=== PATIENT | female | born 1975 | race Caucasian/White ===

== ENCOUNTER → 2020-12-18 12:40 | Outpatient (CLI) | payer BC, SELFPAY ==
--- NOTE | ~2020-12-18 | MM_ITS ---
EXAMINATION: MM screening hoa BI w vishnu HISTORY: Screening mammogram TECHNIQUE: Craniocaudal and mediolateral oblique 3-D tomosynthesis images were obtained and synthetic 2-D images were generated. CAD analysis was submitted and interpreted. COMPARISON: No prior mammogram is available for comparison at this institution. BREAST PARENCHYMAL COMPOSITION: The breasts are heterogeneously dense, which may obscure small masses . FINDINGS: There is no evidence of suspicious mass, calcification, or architectural distortion to sugg est malignancy in either breast. There has been no suspicious interval change. IMPRESSION: 1. No mammographic evidence of malignancy. 2. Recommend routine screening mammography in one year. BI-RADS Category 1: Negative Reviewed, dictated and finalized at location A. D MEMBER
== END ==
PROVIDERS: Visit Provider Advanced Practice Midwife
DX: Z12.31 Encounter for screening mammogram for malignant neoplasm of breast (principal)
CPT/HCPCS: 77063; 77067

== ENCOUNTER 2021-11-04 08:16 | Outpatient (CLI) | payer BC, SELFPAY ==
--- NOTE | ~2021-11-04 | CT_ITS ---
EXAMINATION: CT abdomen pelvis w con DATE: 11/04/2021 08:56 INDICATION: Ventral hernia without obstruction or gangrene TECHNIQUE: Computed tomography (CT) of the abdomen and pelvis was performed with 100 mL Omnipaque-350 intravenous contrast. Automated exposure control and iterative reconstruction technique were employe d. The dose-length product was 526.81 mGy-cm. COMPARISON: None FINDINGS: Lung bases are clear. Heart size is normal. No pericardial or pleural effusion. There are 3 low-atten uation hepatic lesions the largest measuring 1.5 cm in the right hepatic lobe. Gallbladder, pancreas, spleen, bilateral adrenal glands and kidneys are normal. Very small fat-containing umbilical hernia. No other ventral hernias. Normal appendix and small bowel. Mild to moderate scattered diverticulosis . There is wall thickening with surrounding inflammatory stranding at the mid sigmoid colon which cou ld be due to diverticulitis or less likely focal colitis. There is nonenhancing tract suspicious for a colovaginal fistula extending between the region of the deepest portion of the vaginal vault and 2 separate locations along the mid sigmoid colon. Anteverted uterus and bladder are normal. Trace amoun t of free fluid in the cul-de-sac. No abscess or free intraperitoneal gas. Approximately 1 cm right o varian likely corpus luteum cyst with crenelated enhancing peripheral margin. Severe bilateral facet osteoarthritis at L4-L5 and L5-S1. IMPRESSION: 1. Wall thickening and inflammatory stranding at the mid sigmoid colon most likely related to diverti culitis with differential including focal colitis which could be inflammatory, infectious or less lik ashley ischemic in etiology. 2. Suggestion of possible secondary colovaginal fistula. 3. Very small fat-containing umbilical hernia. 4. 3 hypoenhancing hepatic lesions, the largest measuring 1.5 cm. In the absence of known malignancy or liver disease or most likely benign would recommend further evaluation with pre and postcontrast M RI. Reviewed, dictated and finalized at location A. TOR CRANE OPERATOR IMPRESSION: 1. Wall thickening and inflammatory stranding at the mid sigmoid colon most lik ashley related to diverticulitis with differential including focal colitis which c ould be inflammatory, infectious or less likely ischemic in etiology. 2. Suggestion of possible secondary colovaginal fistula. 3. Very small fat-containing umbilical hernia. 4. 3 hypoenhancing hepatic lesions, the largest measuring 1.5 cm. In the absenc e of known malignancy or liver disease or most likely benign would recommend fu rther evaluation with pre and postcontrast MRI.
[2021-11-04 08:35] LABS: Estimated Glomerular Filt Rate > 60
== END 2021-11-04 08:17 ==
LOC: MICIMG 08:17
PROVIDERS: PCP Family Medicine; Visit Provider Nurse Practitioner Gerontology
DX: K43.9 Ventral hernia without obstruction or gangrene (principal); R10.9 Unspecified abdominal pain; R93.3 Abnormal findings on diagnostic imaging of other parts of digestive tract; K42.9 Umbilical hernia without obstruction or gangrene; K76.9 Liver disease, unspecified
CPT/HCPCS: 74177; Q9967

== ENCOUNTER 2021-11-15 10:33 | Outpatient (CLI) | payer BC, SELFPAY ==
--- NOTE | ~2021-11-15 | MR_ITS ---
EXAMINATION: MR abdomen wo/w con DATE: 11/15/2021 11:26 INDICATION: Hepatomegaly, not elsewhere classified. Liver mass. TECHNIQUE: Magnetic resonance imaging (MRI) of the abdomen was performed without and with 14 mL Multi Adilson intravenous contrast. Sequences included coronal T2-weighted FS FSE, coronal and axial FS FIEST A, axial T2-weighted FSE, coronal LAVA-flex, axial STIR FSE, axial DWI, axial dual-echo T1-weighted F SPGR, and axial LAVA. Postcontrast sequences included coronal LAVA-flex and a time course of axial LA VA. COMPARISON: CT abdomen and pelvis 11/04/2021 FINDINGS: There are 3 cysts in the liver measuring up to 1.5 cm in right hepatic lobe correlating with the CT a bnormalities. There is a 7 mm hyperenhancing mass in segment IVb of the liver. The gallbladder, splee n, pancreas, adrenal glands, and kidneys are normal. There are no dilated loops of bowel. There are n o pathologically enlarged lymph nodes. There is no free intraperitoneal fluid. IMPRESSION: 1. Benign cysts in the liver correlating with the CT abnormalities. 2. 7 mm hyperenhancing mass in the liver. In the absence of known malignancy or chronic liver disease , this finding is likely a hemangioma or focal nodular hyperplasia. Reviewed, dictated and finalized at location A. ING MIXER TENDER IMPRESSION: 1. Benign cysts in the liver correlating with the CT abnormalities. 2. 7 mm hyperenhancing mass in the liver. In the absence of known malignancy or chronic liver disease, this finding is likely a hemangioma or focal nodular hy perplasia.
== END 2021-11-15 10:34 ==
PROVIDERS: Visit Provider Nurse Practitioner Gerontology
DX: R10.9 Unspecified abdominal pain (principal); R16.0 Hepatomegaly, not elsewhere classified; K76.89 Other specified diseases of liver
CPT/HCPCS: 74183; A9577

== ENCOUNTER → 2021-12-23 12:33 | Outpatient (CLI) | payer BC, SELFPAY ==
--- NOTE | ~2021-12-23 | MM_ITS ---
EXAMINATION: MM screening hoa BI w vishnu HISTORY: Screening mammogram TECHNIQUE: Craniocaudal and mediolateral oblique 3-D tomosynthesis images were obtained and synthetic 2-D images were generated. CAD analysis was submitted and interpreted. COMPARISON: 12/18/2020 BREAST PARENCHYMAL COMPOSITION: The breasts are heterogeneously dense, which may obscure small masses . FINDINGS: There is no evidence of suspicious mass, calcification, or architectural distortion to sugg est malignancy in either breast. There has been no suspicious interval change. IMPRESSION: 1. No mammographic evidence of malignancy. 2. Recommend routine screening mammography in one year. BI-RADS Category 1: Negative Reviewed, dictated and finalized at location A. ICAL PREPARER
== END ==
PROVIDERS: Visit Provider Advanced Practice Midwife
DX: Z12.31 Encounter for screening mammogram for malignant neoplasm of breast (principal)
CPT/HCPCS: 77063; 77067

== ENCOUNTER 2022-05-31 10:12 | Outpatient (CLI) | payer BC, SELFPAY ==
[2022-05-31 11:19] LABS: Hematocrit 39.9 % (37.0-47.0); Hemoglobin 13.2 g/dL (12.0-15.0)
== END 2022-05-31 10:13 | disposition home or self-care (01) ==
LOC: ANHLAB 10:14
PROVIDERS: PCP Family Medicine; Visit Provider Anesthesiology
DX: D64.9 Anemia, unspecified (principal)
CPT/HCPCS: 36415; 85014; 85018

== ENCOUNTER 2022-06-02 01:34 | Day surgery (SDC) | payer BC, SELFPAY ==
[2022-03-28 14:20] VITALS: BMI 28.3
--- NOTE | 2022-03-28 14:28 | PC.NURSE ---
Report to the Outpatient Waiting Room, entrance under the green pavilion located off [facility], at time 1130 on date 04/01/22. OR Time: 1330. - You and your visitor will be asked a series of questions to screen for COVID 19 for your protection. - Only one visitor is allowed at this time. - The patient visitor is requested to leave or wait in car when not with patient. - A mask is required within the hospital. Patients may have clear liquids (water, carbonated beverages, clear teas, apple juice) until 3 hours prior to surgery with a maximum of 20 ounces. - No food from midnight until time of surgery Take the following medications with a SIP of water the morning of surgery: METOPROLOL Medications to discontinue per physician: VITAMINS/SUPPLEMENTS Date to take last dose: 03/28/22 Please no make-up, nail slovak, hairspray, perfume, deodorant, or body powder the day of surgery. No jewelry (including any body piercings) or valuables the day of surgery, leave them at home. Please take a shower or bath the night before, or the morning of, surgery with an antibacterial soap. Wear comfortable, loose fitting clothing. - Jewelry must be removed prior to entering the operating room. Rings and piercings that are not removed may be cut off. - The hospital will not accept responsibility for valuables. - Please leave all valuables, including medications, at home the day of surgery. If you are going home after surgery, a licensed nascar driver must drive you home. - NO public transportation without another adult. - We recommend that an adult stay with you for 24 hours following discharge. - We also recommend that you do not drive, make important decision, drink alcoholic beverages, or take any drugs that were not prescribed by your health care provider for at least 24 hours after your discharge time. Follow any additional instructions given to you from your surgeon. If you or anyone in your household have experienced Covid symptoms in the past week, please notify your surgeon or the nurse liaison at the phone number below for possible testing. Telephone instructions given to PT - HAYDE PALOMINO and asked if any additional questions and then verbalized understanding. Patient advised to call surgeon office or pre surgery nurse liaison [phone] if any additional questions.
--- NOTE | 2022-05-30 17:55 | PC.NURSE ---
Report to the Outpatient Waiting Room, entrance under the green pavilion located off [facility], at time 0600 on date _06/02/22. OR Time: 0730__. - You and your visitor will be asked a series of questions to screen for COVID 19 for your protection. - Only one visitor is allowed at this time. - The patient visitor is requested to leave or wait in car when not with patient. - A mask is required within the hospital. Patients may have clear liquids (water, carbonated beverages, clear teas, apple juice) until 3 hours prior to surgery with a maximum of 20 ounces. - No food from midnight until time of surgery - Infants may have breast milk until 4 hours before surgery, formula 6 hours prior to surgery. - Children will be allowed to drink immediately following surgery. If applicable, please bring a bottle or sippy cup to assist with drinking. Juice, water, soda, and popsicles are readily available. For infants on formula, please bring formula the day of surgery. Pacifiers are allowed. Take the following medications with a SIP of water the morning of surgery: metoprolol Medications to discontinue per physician _vitamins__ Date to take last dose_05/30/22 Please no make-up, nail citizen of [place], hairspray, perfume, deodorant, or body powder the day of surgery. No jewelry (including any body piercings) or valuables the day of surgery, leave them at home. Please take a shower or bath the night before, or the morning of, surgery with an antibacterial soap. Wear comfortable, loose fitting clothing. Children are encouraged to wear pajamas. - Jewelry must be removed prior to entering the operating room. Rings and piercings that are not removed may be cut off. - The hospital will not accept responsibility for valuables. - Please leave all valuables, including medications, at home the day of surgery. If you are going home after surgery, a licensed crude oil driver must drive you home. - NO public transportation without another adult. - We recommend that an adult stay with you for 24 hours following discharge. - We also recommend that you do not drive, make important decision, drink alcoholic beverages, or take any drugs that were not prescribed by your health care provider for at least 24 hours after your discharge time. For Pediatric surgeries, we recommend two adults accompany the child home (only one inside the building at this time). Follow any additional instructions given to you from your surgeon. If you or anyone in your household have experienced Covid symptoms in the past week, please notify your surgeon or the nurse liaison at the phone number below for possible testing. Telephone instructions given to Viviane Leonaand asked if any additional questions and then verbalized understanding. Patient advised to call surgeon office or pre surgery nurse liaison [phone] if any additional questions.
--- NOTE | 2022-06-01 08:35 | PM.IMHP ---
H&P: HPI History of Present Illness Date/Time: 06/01/22 08:35 46-year-old female 3 para 3003 presents for treatment of heavy irregular vaginal bleeding. States cycles last 5-7 days with 2-3 days heavy clotting cramping to the point where she is of alarmed relieving house thinking she will be bleeding. Has significantly impacted her social and work life. Denies any significant pain other than with the heavy cramping with her cycle. Ultrasound and other imaging has been performed with no significant abnormalities. Other options have been discussed and declined. Also has had a tubal ligation in the past. Chief Complaint: Menometrorrhagia Review of Systems Review of Systems: All systems reviewed & are unremarkable except as noted in HPI and below PMFSH Past Medical History Medical History GERD (gastroesophageal reflux disease) History of hypertension Surgical History Surgical History Tubal ligation status Family History Family History Father Hypertension Mother Hypertension Thyroid disorder Social History Social History Social History: Smoking status: Never smoker Second hand tobacco smoke exposure: No Alcohol intake: current Alcohol use details: COUPLE TIMES/MONTH Substance use: never Substance use type: does not use Additional living arrangements comments: Pt and her boyfriend live together. Additional occupation/education comments: RN Gender identity (if verbalized by the patient): Female Sexual Orientation (if Verbalized by the Patient): Straight or Heterosexual Spiritual care concerns: No Meds Home Medications and Allergies Home Medications Medication Instructions Recorded Confirmed Type cholecalciferol (vitamin D3) 25 25 mcg PO DAILY 08/27/21 03/28/22 History mcg (1,000 unit) capsule ferrous fumarate-ascorbic 1 tablet PO DAILY 08/27/21 03/28/22 History acid-ascorbate sod 65 mg iron-125 mg tablet vitamin B12 500 mcg-folic acid 400 1 tablet PO DAILY 08/27/21 03/28/22 History mcg tablet metoprolol tartrate 25 mg tablet See Rx Instructions .Route 11/30/21 03/28/22 Rx .COMPLEX #60 tabs Allergies Allergy/AdvReac Type Severity Reaction Status Date / Time Iodinated Contrast Media Allergy Intermediate hives Verified 03/28/22 14:18 Sulfa (Sulfonamide Allergy Mild Hives / Verified 03/28/22 14:18 Antibiotics) Red Face Exam Const: General: cooperative, healthy appearing and comfortable Resp: Effort & Inspection: normal respiratory effort Auscultation: clear to auscultation bilaterally Cardio: Rate: regular rate Rhythm: regular rhythm GI: Inspection: normal to inspection Auscultation: normal bowel sounds : External Female Exam: normal external appearance Speculum Exam - Vagina: normal appearance of the vagina Speculum Exam - Cervix: normal appearance of the cervix Bimanual exam- vagina & uterus: enlarged ( 12- 14 week size and globular) Bimanual Exam- Adnexa, other: normal adnexae Assessment and Plan Assessment and plan (1) Menometrorrhagia: Code(s): N92.1 - Excessive and frequent menstruation with irregular cycle Status: Acute Assessment and Plan: proceed with hysteroscopy uterine curettings and endometrial ablation.
--- NOTE | 2022-06-01 13:39 | P.PNAN_ITS ---
Anes - Initial Pre Proc Eval Procedure: Operation Date: 06/02/22 07:30 Proposed Procedures p Hysteroscopy Dilation and Curettage with Mary Endometrial Ablation - Jeremy Tilley MD Date/Time: 06/01/22 13:39 Surgeon: Jeremy Tilley MD Pre Op Diagnosis: menometrorrhagia Patient Data Age: 46 Gender: F Height: 1.6 m Weight: 72.57 kg Allergies Allergy/AdvReac Type Severity Reaction Status Date / Time Iodinated Contrast Media Allergy Intermediate hives Verified 06/02/22 06:10 Sulfa (Sulfonamide Allergy Mild Hives / Verified 06/02/22 06:10 Antibiotics) Red Face Home Medications Medication Instructions Recorded Confirmed Type cholecalciferol (vitamin D3) 25 25 mcg PO DAILY 08/27/21 06/02/22 History mcg (1,000 unit) capsule ferrous fumarate-ascorbic 1 tablet PO DAILY 08/27/21 06/02/22 History acid-ascorbate sod 65 mg iron-125 mg tablet vitamin B12 500 mcg-folic acid 400 1 tablet PO DAILY 08/27/21 06/02/22 History mcg tablet metoprolol tartrate 25 mg tablet See Rx Instructions .Route 11/30/21 06/02/22 Rx .COMPLEX #60 tabs Patient hx anesthesia problems: none Family hx anesthesia problems: none Results Review: All pre-operative results and documents have been reviewed as part of the pre- operative evaluation. [facility]LY [facility] Past Medical History Medical History (Updated 06/01/22 @ 13:39 by Navneet Blanco DO) GERD (gastroesophageal reflux disease) History of hypertension Liver mass Surgical History Surgical History Tubal ligation status Family History Family History Father Hypertension Mother Hypertension Thyroid disorder Social History Social History Social History: Smoking status: Never smoker Second hand tobacco smoke exposure: No Alcohol intake: current Alcohol use details: Occasionally Substance use: never Substance use type: does not use Living arrangements: with family Additional living arrangements comments: Pt and her boyfriend live together. Additional occupation/education comments: RN Gender identity (if verbalized by the patient): Female Sexual Orientation (if Verbalized by the Patient): Straight or Heterosexual Spiritual care concerns: No Anes - Eval Final PreProcedure Day of Procedure 06/01/22 13:39 Patient weight: overweight Heart: regular rate and rhythm Lungs: clear to auscultation Airway: Mallampati scale class II Neurological: alert and oriented Last oral intake: >/= 8 hours ASA classification: II Emergent: no Anesthetic plan: proceed Anesthesia type and monitoring: general GIVS and standard monitoring Results Review: All pre-operative results and documents have been reviewed as part of the pre- operative evaluation. Informed Consent: The patient's anesthetic plan and its attendant risks and benefits were discussed with the patient/family/POA. Questions were solicited and answers provided to the satisfaction of the patient/family/POA.
[2022-06-02] MEDS: ACETAMINOPHEN 500 MG TABLET 1000 MG PO (06:13)
[2022-06-02] MEDS: LACTATED RINGERS 1,000 ML 30 ML IV CONT (06:32)
[2022-06-02 06:36] VITALS: BP 125/79; PULSE 63; RESP 16; TEMP 36.6; O2SAT 100
--- NOTE | 2022-06-02 07:19 | WPDHPUPDATE1 ---
History and Physical Update Update Date/Time: 06/02/22 07:19 History and Physical has been reviewed, including an updated exam of the patient. There are NO changes in the patient's condition. Risks, benefits, and alternatives have been discussed and questions answered. Patient agrees to proceed with procedure.
[2022-06-02] MEDS: ceFAZolin 2 GM/D5W 50 ML 2 GM/50 ML BAG IVPB (07:23)
[2022-06-02] MEDS: KETOROLAC 30 MG/ML VIAL (*BKC) IV PUSH (07:32)
[2022-06-02 07:51] VITALS: BP 112/64; PULSE 65; RESP 14; O2SAT 98
--- NOTE | 2022-06-02 07:53 | W.PM.PROC2 ---
Procedure Note - Detailed Date of Procedure 06/02/22 Pre-op Diagnosis menometrorrhagia Post-op Diagnosis Same Procedure Performed 1. Hysteroscopy with uterine curettings 2. Endometrial ablation Surgeon Jeremy Tilley MD Anesthesia MAC Findings Slightly thickened endometrial cavity Description of Procedure Patient was prepped and draped in usual manner for this procedure. Single-tooth tenaculum attached anterior lip of the cervix the cervix was dilated to allow the hysteroscope to be placed. Hysteroscopic findings revealed slightly thickened tissue was noted above in curettings were obtained. Mary instrument was placed cavity assessment was performed and the instrument was activated. At the end of the cycle hysteroscopic exam revealed good destruction throughout. This point the procedure was considered terminated the patient was sent to recovery room in stable condition. Estimated Blood Loss 10 Drains No Packing No Pathology Yes Complications No immediate complications Condition Stable Disposition PACU [facility] Billing Surgery - Charge Forward: Surgery Billing
[2022-06-02 08:15] VITALS: BP 118/70; PULSE 59; RESP 20
[2022-06-02 08:45] VITALS: BP 130/81; PULSE 52; RESP 20
[2022-06-02 09:10] VITALS: BP 153/84; PULSE 53; RESP 20
== END 2022-06-02 09:16 | disposition home or self-care (01) ==
PROVIDERS: PCP Family Medicine; Visit Provider Obstetrics & Gynecology
PROC: 0U5B8ZZ Destruction of Endometrium, Via Natural or Artificial Opening Endoscopic (ICD-10-PCS; CPT 58563; principal; 2022-06-02 07:30)
DX: N92.1 Excessive and frequent menstruation with irregular cycle (principal); N94.89 Other specified conditions associated with female genital organs and menstrual cycle; K21.9 Gastro-esophageal reflux disease without esophagitis; I10 Essential (primary) hypertension; R16.0 Hepatomegaly, not elsewhere classified
CPT/HCPCS: 58563; 88305; A9270; J0690; J1885; J2250; J2405; J2704; J3010; J7120

== ENCOUNTER 2022-10-18 13:36 | Outpatient (CLI) | payer BC, SELFPAY ==
[2022-10-18 14:16] LABS: Alanine Aminotransferase 20 U/L (6-35); Albumin Level 4.1 g/dL (3.5-5.1); Alkaline Phosphatase 120 U/L (38-126); Anion Gap 1 mmol/L (8-16); Aspartate Amino Transferase 30 U/L (14-36); Bilirubin,Total 0.3 mg/dL (0.2-1.3); Blood Urea Nitrogen 8 mg/dL (7-17); Calcium 8.4 mg/dL (8.4-10.2); Carbon Dioxide 33 mmol/L (22-30); Chloride 101 mmol/L (98-107); Estimated Glomerular Filt Rate > 60; Glucose 100 mg/dL (65-110); Potassium 3.7 mmol/L (3.4-5.0); Sodium 135 mmol/L (137-145)
[2022-10-18 14:19] LABS: Basophils Absolute Auto 0.1 K/mm3 (0.0-0.1); Basophils Percent Auto 0.7 % (0.2-1.2); Eosinophils Absolute Auto 0.4 K/mm3 (0-0.3); Eosinophils Percent Auto 4.9 % (0-4.4); Hematocrit 37.3 % (37.0-47.0); Hemoglobin 12.8 g/dL (12.0-15.0); Immature Granulocyte Absolute 0.02 K/mm3 (0.00-0.031); Immature Granulocyte Percent A 0.3 % (0-0.5); Lymphocytes Absolute Auto 2.33 K/mm3 (0.9-3.2); Lymphocytes Percent Auto 31.5 % (18.3-44.2); Mean Corpuscular HGB Conc 34.3 g/dl (32-36); Mean Corpuscular Hemoglobin 30.3 pg (26-34); Mean Corpuscular Volume 88.2 fl (80-100); Mean Platelet Volume 9.6 fl (7.4-10.4); Monocytes Absolute Auto 0.6 K/mm3 (0.1-0.6); Neutrophils Absolute Auto 4.1 K/mm3 (1.3-6.7); Neutrophils Percent Auto 54.6 % (45.5-73.1); Platelet Count Result 305 k/mm3 (150-375); Red Blood Count 4.23 M/mm3 (4.2-5.4); Red Cell Distribution Width 12.2 % (11.5-14.5); White Blood Count 7.4 K/mm3 (4.5-10.0)
[2022-10-18 14:20] LABS: Add Urine Microscopic? YES; Appearance Urine Clear (Clear); Bilirubin Urine Negative (Negative); Blood Urine 1+ (Negative); Color Urine Light Yellow (Yellow); Glucose Urine UA Negative (Negative); Ketones Urine Negative (Negative); Leukocyte Esterase Ur 1+ LEU/UL (Negative); Nitrate Urine Negative (Negative); Protein Urine Negative (Negative); Urobilinogen Urine 0.2 mg/dL (<2.0)
[2022-10-18 14:23] LABS: Bacteria Urine Trace /hpf; Mucus Urine Rare /lpf; RBC Urine 21-50 /hpf (0-2); Squamous Epithelial Cell Urine Occasional /hpf (Few)
== END 2022-10-18 13:37 | disposition home or self-care (01) ==
LOC: ANHLAB 13:39
PROVIDERS: PCP Family Medicine
DX: N82.4 Other female intestinal-genital tract fistulae (principal)
CPT/HCPCS: 36415; 80053; 81001; 85025; 87086; 87088

== ENCOUNTER 2022-12-30 08:02 | Outpatient (CLI) | payer BC, SELFPAY ==
--- NOTE | ~2022-12-30 | NM_ITS ---
EXAMINATION: NM hepatobiliary wo pharm DATE: 12/30/2022 10:37 INDICATION: Right upper quadrant abdominal pain. COMPARISON: Abdomen MRI 11/15/2021 TECHNIQUE: 5.4 mCi Tc-99m mebrofenin (Choletec) was administered intravenously. Scintigraphic images of the abdomen were obtained for one hour. Then, the patient drank 8 oz Ensure, and imaging was cont inued for 60 minutes. FINDINGS: There is normal clearance of radiotracer from the blood pool. There is homogeneous tracer u ptake by the liver. Activity progresses to the bowel and gallbladder. Gallbladder ejection fraction (GBEF) was 71%. Note that with this technique, normal GBEF >= 33%. IMPRESSION: 1. Normal hepatobiliary scintigraphy. Reviewed, dictated and finalized at location A. ICE DELIVERY MANAGEMENT CONSULTANT
== END 2022-12-30 08:03 | disposition home or self-care (01) ==
LOC: ANHIMG 08:03
PROVIDERS: PCP Family Medicine; Visit Provider Family Medicine
DX: R10.11 Right upper quadrant pain (principal)
CPT/HCPCS: 78226; A9537

== ENCOUNTER → 2023-11-03 13:36 | Outpatient (CLI) | payer BC, SELFPAY ==
--- NOTE | ~2023-11-03 | MM_ITS ---
EXAMINATION: MM screening [facility] BI w vishnu HISTORY: Screening mammogram TECHNIQUE: Craniocaudal and mediolateral oblique 3-D tomosynthesis images were obtained and synthetic 2-D images were generated. CAD analysis was submitted and interpreted. COMPARISON: 12/23/2021, 12/18/2020 BREAST PARENCHYMAL COMPOSITION: The breasts are heterogeneously dense, which may obscure small masses . FINDINGS: No suspicious mass, calcification, or architectural distortion are identified in either ernie ast to suggest malignancy. There has been no suspicious interval change. IMPRESSION: 1. No mammographic evidence of malignancy. 2. Recommend routine screening mammography in one year. BI-RADS Category 1: Negative Reviewed, dictated and finalized at location A. YSIS EQUIPMENT TECHNICIAN
== END ==
PROVIDERS: PCP Family Medicine; Visit Provider Family Medicine
DX: Z12.31 Encounter for screening mammogram for malignant neoplasm of breast (principal)
CPT/HCPCS: 77063; 77067

== ENCOUNTER 2025-02-21 11:17 | Outpatient (CLI) | payer BC, SELFPAY ==
--- NOTE | ~2025-02-21 | XR_ITS ---
EXAMINATION: XR chest 2V 02/21/2025 11:31 INDICATION: Cough PROCEDURE: 2 view chest COMPARISON: 06/30/2018 FINDINGS: The lungs are clear. The cardiomediastinal silhouette is within normal limits. There are no pleural effusions. There is no pneumothorax suspected. IMPRESSION: 1: NO ACUTE CARDIOPULMONARY DISEASE. Reviewed, dictated and finalized at location A.
--- OUTSIDE RECORDS SUMMARY | 2025-02-22 12:42 | XMS_ITS | Encounter Summary ---
Author Organization [facility] Address [address] [place] [id number] Care Team Providers Care Physical Therapist Technician Name Role Phone Ivana Mahan Primary Care Provider [phone] Patricia Rojas NP Primary Care Provider Lynn Mckenzie Primary Care Provider [phone] Nhi Roman MD Primary Care Provider [phone] Encounter Details Date Type Department Care Team (Late st Contact Info) Description 07/27/2017 Abstract [facility] CONVERSION [address] [place] [address] , Shayne Richey MD Social History Tobacco Use Types Packs/Day Years Used Date Smoking Tobacco: Never Assessed Comments Unknown Sex and Gender Information Value Date Recorded Sex Assigned at Not on file Legal Sex Female 4:21 PM CDT Gender Identity Not on file Sexual Orientation Not on file documented as of this encounter Plan of Treatment Not on file documented as of this encounter Visit Diagnoses Not on filedocumented in this encounter Care Teams Physical Therapist Technician Relationship Specialty Start Date End Date Ivana Mahan APNP [address] [facility] [address] [place] [address] PCP - General FAMILY PRACTICE 10/17/18 01/16/19 [place] [address] [facility] [address] [place] [address] PCP - General Nurse Practitioner Family 01/17/1906/25 [place] [address] [facility] [place] [address] PCP - General PHYSICIAN STRATEGIC COMMUNICATIONS MANAGER 06/26/20 06/12/23 Nhi Roman MD [address] [facility] [address] [place] [address] PCP - General FAMILY PRACTICE 06/13/23 documented as of this encounter
--- OUTSIDE RECORDS SUMMARY | 2025-02-22 12:42 | XMS_ITS | Clinical Summary ---
Author Organization [facility] Address [address] [place] [id number] Care Team Providers Care Receivable Manager Name Role Phone Nhi Roman MD Primary Care Provider Manan Knott MD Unavailable [phone] Allergies Active Allergy Reactions Criticality Noted Date Comments Ciprofloxacin Hives Medium 11/17/2021 Iodinated Contrast Media Rash Medium 12/17/2021 Patient reports rash appearing in groin, abdomen and underarm areas approx. 24 hrs after scan Sulfa (Sulfonamide Antibiotics) Hives Medium 12/30/2013 Medications cyanocobalamin (Vitamin B-12) 1,000 mcg tabletIndicatio ns:Prevention of Vitamin B12 Deficiency Take 1 tablet (1,000 mcg total) by mouth every morning Active ferrous sulfate (IRON ORAL)Indication s:supplement Take 1 tablet by mouth every morning Active cholecalciferol , vitamin D3, (VITAMIN D3 ORAL) Take 1,000 Units by mouth every morning Active hydroCHLOROthia zide (HYDRODIURIL) 12.5 mg tabletIndicatio ns:hypertension Take 1 tablet (12.5 mg total) by mouth every morning 08/18/2022 Active busPIRone (BUSPAR) 5 mg tabletIndicatio ns:Generalized Anxiety Disorder Take 1 tablet (5 mg total) by mouth 2 (two) times a day 07/18/2022 Active omeprazole (PriLOSEC) 20 mg capsuleIndicati ons:Stress Ulcer Prophylaxis,Rogelio atment of Non-Bleeding Gastric Disorder Take 1 capsule (20 mg total) by mouth every morning 09/26/2022 Active traZODone (DESYREL) 50 mg tabletIndicatio ns:insomnia associated with depression Take 0.5 tablets (25 mg total) by mouth nightly as needed (Takes 1/2 pill) 08/22/2022 Active metoprolol tartrate (LOPRESSOR) 25 mg immediate release tabletIndicatio ns:hypertension Take 1 tablet (25 mg total) by mouth 2 (two) times a day 08/22/2022 Active acetaminophen 500 mg capsuleIndicati ons:Pain Take 2 capsules (1,000 mg total) by mouth every 6 (six) hours 30 tablet 11/24/2022 Active ibuprofen (ADVIL,MOTRIN) 600 mg tabletIndicatio ns:Pain Take 1 tablet (600 mg total) by mouth every 6 (six) hours as needed for pain 30 tablet 11/24/2022 Active meloxicam (MOBIC) 15 mg tablet TAKE 1 TABLET (15 MG TOTAL) BY MOUTH DAILY. 30 tablet 12/26/2023 Active Active Problems Problem Noted Date Diagnosed Date Right knee pain 11/29/2023 Bilateral impacted cerumen 06/06/2023 Sensorineural hearing loss (SNHL) of both ears 0 06/06/2023 Colovaginal fistula 11/02/2022 Overview (11/02/2022): Added automatically from request for surgery [id number] Encounter for screening colonoscopy 12/16/2021 Overview (12/16/2021): Added automatically from request for surgery [id number] Diverticulitis 12/16/2021 Overview (12/16/2021): Added automatically from request for surgery [id number] Pain of foot 09/28/2015 Ankle pain 09/28/2015 Immunizations Immunization Administration Dates Next Due Influenza, Quadrivalent, Spl it, Preservative Free, Intramuscular 11/24/2022(Deferred: Patient Refused) Surgical History Surgery Date Site/Laterality Comments TUBAL LIGATION 10/23/2006 - 10/22/2007 COLECTOMY PARTIAL / TOTAL Partial Medical History Medical History Date Comments HTN (hypertension) Ear problems HL (hearing loss) Tinnitus Family History Medical History Relation Name Comments Hypertension Father Arthritis Mother Family history of arthritis - (Added by TW Conv) Hypertension Mother Family history of hypertension - (Added by TW Conv) Cancer Paternal Grandmother Anesthesia problems Neg Hx Relation Name Status Comments Father Mother Paternal Grandmother Social History Tobacco Use Types Packs/Day Years Used Date Smoking Tobacco: Never Passive Smoke Exposure: Never Smokeless Tobacco: Never Tobacco Cessation:Counseling Given: Not Answered AUDIT-C Answer Date Recorded Q1: How often do you have a drink containing alc ohol? Monthly or less 06/06/2023 Q2: How many drinks containi ng alcohol do you have on a typical day when you are drinking? 1 or 2 06/06/2023 Q3: How often do you have si x or more drinks on one occasion? Never 06/06/2023 Personal Safety Answer Date Recorded Getting School Help Needed Denies 10/24 Comments No Sex and Gender Information Value Date Recorded Sex Assigned at Not on file Legal Sex Female 11:15 AM ELECTRICIAN CONSTRUCTOR SUPERVISOR Gender Identity Not on file Sexual Orientation Not on file Obstetrics History Last Filed Vital Signs Vital Sign Reading Time Taken Comments Blood Pressure 116/74 12/20/2022 10:38 AM ELECTRICIAN CONSTRUCTOR SUPERVISOR Pulse 71 12/20/2022 10:38 AM ELECTRICIAN CONSTRUCTOR SUPERVISOR Temperature 36.6 C (97.9 F) 11/24/2022 12:05 PM ELECTRICIAN CONSTRUCTOR SUPERVISOR Respiratory Rate 20 06/06/2023 12:49 PM CDT Oxygen Saturation 100% 11/24/2022 12:05 PM ELECTRICIAN CONSTRUCTOR SUPERVISOR Inhaled Oxygen Concentration - - Weight 74.8 kg (165 lb) 06/06/2023 12:49 PM CDT Height 160 cm (5' 3 ) 06/06/2023 12:49 PM CDT Body Mass Index 29.23 06/06/2023 12:49 PM CDT Plan of Treatment Health Maintenance Due Date Last Done Comments Breast Cancer Screening-Mammogram 1973 Cervical Cancer Screening 1973 Depression Screening 1973 Hepatitis C Screening 1973 DTaP/Tdap/Td Vaccine (1 - Tdap) 1984 Hepatitis B Screening 1991 Regular Well Visit/Exam 18-64 1991 Zoster Vaccine (1 of 2) 2023 Covid-19 Vaccine (2 - 2023-2 5 season) 2024 12/27/2020 Influenza Vaccine (Season Ended) 2025 08/02/20 21 Colon Cancer Screening-Colonoscopy 01/04/20322021 Pneumococcal vaccine <65 Aged Out No longer eligible based on patient's age to complete this topic Procedures Procedure Name Priority Date/Time Associated Diagnosis Comments COLONOSCOPY 01/03/2022 1:37 PM CDT from Last 3 Months or Most Recently Relevant to Health Maintenance Results * COLONOSCOPY (01/03/2022 1:37 PM CDT) Anatomical Region Laterality Modality Other Narrative Procedure Note Manan Knott MD - 01/03/2022 1:37 PM CDT [facility] Patient Name: Viviane Hand Procedure Date: 01/03/2022 1:37 PM Date of : 1975 Admit Type: Outpatient Age: 46 Gender: Female Attending MD: Manan Knott M.D. Room: [facility] ENDOSCOPY ROOM 02 Note Status: Finalized Procedure: Colonoscopy Indications: Screening for colorectal malignant neoplasm, Incidental - Diverticulitis Referring MD: Providers: Manan Knott M.D. Medicines: Monitored Anesthesia Care Complications: No immediate complications. Estimated Blood Loss: Estimated blood loss: none. Procedure: Pre-Anesthesia Assessment: - After reviewing the risks and benefits, thepatient was deemed in satisfactory condition to undergo the procedure. - Immediately prior to administration ofmedications, the patient was re-assessed for adequacy to receive sedatives. The benefits, risks and alternatives of theprocedure and sedation were discussed and informed consentwas obtained. All questions were answered. Please referto the signed informed consent document in the medical record. The scope was passed under direct vision.The [id number] was introduced through the anusand advanced to the the cecum, identified byappendiceal orifice and ileocecal valve. The colonoscopy was performed without difficulty. The patient tolerated the procedure well. The quality of the bowel preparation was good. The bowel preparation usedwas SUPREP. Findings: The perianal and digital rectal examinations were normal. A few diverticula were found in the entire colon. The exam was otherwise without abnormality. Impression: - Diverticulosis in the entire examined colon. - The examination was otherwise normal. - No specimens collected. Recommendation: - Repeat colonoscopy in 10 years for screening purposes. Electronically signed by Cody Knott Manan Knott M.D. 01/03/2022 2:22:11 PM Number of Addenda: 0 Note Initiated On: 01/03/2022 1:37 PM Recognized by the [employer] for promoting quality in endoscopy us Manan Knott MD ENDOSCOPY PROCEDURES Final Res ult from Last 3 Months or Most Recently Relevant to Health Maintenance Insurance [facility] ACCESS CHOICE [facility] CHOICE OOS ANTHEM ACCESS CHOICE BLUE [facility] CHOICE OOS ANTHEM ACCESS CHOICE Advance Directives For more information, please contact: [phone] * Full Code (Latest Code Status on File) Date Activated Date Inactivated Comments 11/21/2022 10:50 AM 11/24/2022 6:50 PM * Full Code Date Activated Date Inactivated Comments 01/03/2022 1:00 PM 01/03/2022 7:04 PM Care Teams Receivable Manager Relationship Specialty Start Date End Date Nhi Roman MD [address] [place] [id number] PCP - General Family Medicine 12/14/21 Manan Knott MD [phone] [place] [address] Surgeon Colon and Rectal Surgery 12/14/21
--- OUTSIDE RECORDS SUMMARY | 2025-02-22 12:42 | XMS_ITS | Encounter Summary ---
Author Organization [facility] Address [address] [place] [address] Care Team Providers Care Voice Systems Engineer Name Role Phone Ivana Mahan Primary Care Provider [phone] Patricia Rojas NP Primary Care Provider Lynn Mckenzie Primary Care Provider [phone] Nhi Roman MD Primary Care Provider [phone] Encounter Details Date Type Department Care Team (Late st Contact Info) Description 02/03/2017 Abstract [facility] [address] [place] [address] , Shayne Richey MD Social History Tobacco [...] on filedocumented in this encounter Care Teams Voice Systems Engineer Relationship Specialty Start Date End Date Ivana Mahan APNP [address] [facility] [address] [place] [address] PCP - General FAMILY PRACTICE 10/17/18 01/16/19 [place] [address] [facility] [address] [place] [address] PCP - General Nurse Practitioner Family 01/17/1906/25 [place] [address] [facility] [place] [address] PCP - General PHYSICIAN SUPERVISOR PASTE MIXING 06/26/20 06/12/23 Nhi Roman MD [address] [facility] [address] [place] [address] PCP - General FAMILY PRACTICE 06/13/23 documented as of this encounter
--- OUTSIDE RECORDS SUMMARY | 2025-02-22 12:42 | XMS_ITS | Clinical Summary ---
Author Organization [facility] Address [address] [place] [address] Care Team Providers Care Nuclear Powerplant Mechanic Name Role Phone Nhi Roman MD Primary Care Provider [phone] Allergies Active Allergy Reactions Criticality Noted Date Comments Ciprofloxacin Hives 11/17/2021 Iodine Rash Low 11/11/2021 Sulfa Antibiotics Hives Low 12/30/2013 Medications vitamin B-12 (VITAMIN B12) 100 MCG tablet Take 0.5 tablets (50 mcg total) by mouth daily. Active Ferrous Gluconate (IRON 27 OR) Take 1 tablet by mouth daily. Active vitamin D3, cholecalciferol , 1000 UNIT Tab tablet Take 1 tablet (1,000 Units total) by mouth daily. Active metoprolol tartrate 25 MG tablet Take by mouth 2 (two) times daily. Active busPIRone (BUSPAR) 5 MG tablet Take 1 tablet (5 mg total) by mouth 3 (three) times daily. 4 Active escitalopram (LEXAPRO) 10 MG tablet Take 1 tablet (10 mg total) by mouth daily. 4 Active hydroCHLOROthia zide (MICROZIDE) 12.5 MG capsule Take 1 capsule (12.5 mg total) by mouth daily. 4 Active omeprazole (PRILOSEC) 20 MG capsule Take 1 capsule (20 mg total) by mouth daily. 4 Active tiZANidine (ZANAFLEX) 2 MG tablet TAKE 1 TABLET BY MOUTH 3 TIMES A DAY NEEDED FOR MUSCLE SPASTICITY 4 Active [place]-3 Fatty Acids (FISH OIL) 500 MG capsule Take 500 mg by mouth 2 (two) times a day. Active Active Problems Problem Noted Date Diagnosed Date Chest pain 05/05/2024 Thickened endometrium 11/17/2021 Abnormal uterine bleeding 11/17/2021 Insect bite of other part of neck, initial encou nter 08/02/2021 Gastroesophageal reflux dise ase, unspecified whether esophagitis present 07/24/2020 Anxiety 07/03/2018 Depression 07/03/2018 Resolved Problems Problem Noted Date Diagnosed Date Resolved Date Need for immunization against influenza 08/02/2021 08/09/2021 Immunizations Immunization Administration Dates Next Due Fluzone 6 Months+ Quad (0.5 mL Prefilled Syringe ) 08/02/2021 Family History Medical History Relation Comments Hypertension Father Hypertension Mother Breast Cancer Neg Hx Relation Status Comments Father Alive Mother Alive Social History Tobacco Use Types Packs/Day Years Used Date Smoking Tobacco: Never Smokeless Tobacco: Never Tobacco Cessation:Counseling Given: No Alcohol Use Standard Drinks/Week Comments Yes 0 (1 standard drink = 0.6 oz pur e alcohol) twice a month [facility] Utilities Answer Date Recorded In the past 12 months has e [place], gas, oil, or water [employer] threatened to shut off services in your home? No 05/05/2024 Humiliation, Afraid, Rape, and Kick questionnair e Answer Date Recorded Within the last year, have y ou been afraid of your partner or ex-partner? No 05/05/2024 Within the last year, have y ou been humiliated or emotionally abused in other ways by your partner or ex-partner? No Within the last year, have y ou been kicked, hit, slapped, or otherwise physically hurt by your partner or ex-partner? No 05/05/2024 Within the last year, have y ou been raped or forced to have any kind of sexual activity by your partner or ex-partner? No 05/05/2024 AUDIT-C Answer Date Recorded Frequency of Alcohol Consumption Monthly or less 10/17/2018 Average Number of Drinks Not on file 018 Frequency of Binge Drinking Not on file 09/23 Overall Financial Resource Strain (CARDIA) Answe r Date Recorded How hard is it for you to pa y for the very basics like food, housing, medical care, and heating? Not hard at all 05/05/2024 PHQ-2 Answer Date Recorded PHQ-2 Score - If the patient scores above 3, please move on to questions 3-9 0 04/12/2021 Hunger Vital Sign Answer Date Recorded Within the past 12 months, y ou worried that your food would run out before you got the money to buy more. Never true 05/05/20 24 Within the past 12 months, t he food you bought just didn't last and you didn't have money to get more. Never true 05/05/2024 PRAPARE - Transportation Answer Date Re corded In the past 12 months, has l ack of transportation kept you from medical appointments or from getting medications? No 04/22 In the past 12 months, has l ack of transportation kept you from meetings, work, or from getting things needed for daily living? No 05/05/2024 Housing Stability Vital Sign Answer William e Recorded In the last 12 months, was t here a time when you were not able to pay the mortgage or rent on time? No 05/05/2024 In the past 12 months, how m any times have you moved where you were living? 1 05/05/2024 At any time in the past 12 m [facility], were you homeless or living in a skilled nursing (including now)? No 05/05/2024 Comments No Sex and Gender Information Value Date Recorded Sex Assigned at Not on file Legal Sex Female 4:21 PM CDT Gender Identity Not on file Sexual Orientation Not on file Last Filed Vital Signs Vital Sign Reading Time Taken Comments Blood Pressure 120/80 06/06/2024 12:29 PM CDT Pulse 60 06/06/2024 12:29 PM CDT Temperature 36.3 C (97.4 F) 05/06/2024 12:44 PM CDT Respiratory Rate 20 05/06/2024 12:44 PM CDT Oxygen Saturation 100% 05/06/2024 12:44 PM CDT Inhaled Oxygen Concentration - - Weight 77.6 kg (171 lb) 06/06/2024 12:29 PM CDT Height 160 cm (5' 3 ) 06/06/2024 12:29 PM CDT Body Mass Index 30.29 06/06/2024 12:29 PM CDT Plan of Treatment Health Maintenance Due Date Last Done Comments Cervical Cancer Screening Pa p Smear (Age 30 to 64) Every 3 Years 1973 Colorectal Cancer Screening Colonoscopy (10 Years) 1973 Hepatitis C 1991 DTaP, Tdap and Td Vaccines ( 1 - Tdap) 1992 Hepatitis B Vaccines (1 of 3 - 19+ 3-dose series) 1992 Cervical Cancer Screening Pa p with HPV Testing (Age 30 to 64) Every 5 Years 2003 Cervical Cancer Screening wi th HPV 2003 Annual Physical 01/18/2020 01/17/2019 Mammogram Screening 09/16/2021 09/16/2019, 09/05/2018 Pneumococcal Vaccine: 50+ Years (1 of 1 - PCV) 2023 Zoster Vaccines (1 of 2) 2023 COVID-19 Vaccine (2 - 2023-2 5 season) 2024 12/27/2020 Meningococcal B Vaccine Aged Out No l onger eligible based on patient's age to complete this topic Meningococcal Vaccine Aged Out No krissy coleman eligible based on patient's age to complete this topic RSV Immunizations Under 20 Months Aged Out No longer eligible b ased on patient's age to complete this topic Goals Goal Patient Goal Type Associated Problems Recent Progress Patient-Stated? Author Patient will return to prior living situation and remain independent in ADLs upon discharge from hospital Lifestyle No Qi Jama, entry table operator Procedure Name Priority Date/Time Associated Diagnosis Comments MG SCREENING W URVASHI ALTAF DIGI Routine 09/16/2019 1:32 PM INSTRUCTOR INDUSTRIAL DESIGN Breast cancer screening by mammogram from Last 3 Months or Most Recently Relevant to Health Maintenance Results * MG SCREENING W URVASHI ALTAF DIGI (09/16/2019 1:32 PM INSTRUCTOR INDUSTRIAL DESIGN) Anatomical Region Laterality Modality Breast Bilateral Mammography 09/16/2019 1:51 PM INSTRUCTOR INDUSTRIAL DESIGN Narrative 09/16/2019 1:52 PM INSTRUCTOR INDUSTRIAL DESIGN IMAGING STUDIES: MG SCREENING W URVASHI ALTAF DIGI DATE: 09/16/2019 12:57 PM INDICATION: screening. COMPARISON: 08/14/2017, 09/05/2018. FINDINGS: Bilateral CC and MLO views, digital with CAD. 2-D with 3-D tomosynthesis. Breast compostition: Category C - The breasts are heterogeneously dense, which may obscure small masses. No suspicious microcalcification, worrisome mass or evidence of architectural distortion. No skin thickening or nipple retraction. CONCLUSION: No mammographic evidence of malignancy. BI-RADS Category 1 - negative. Routine screening mammography recommended MQ BI-RADS Categories: Category 0 - needs additional imaging evaluation. Category 1 - negative. Category 2 - benign findings. Category 3 - probably benign findings, but short interval follow-up is recommended. Category 4 - suspicious abnormality and biopsy should be considered though the lesion may well be benign. Category 5 - highly suggestive of malignancy and appropriate action should be taken. A) A negative report should not delay a biopsy if a dominant or clinically suspicious mass is present. B) Adenosis and dense breasts may obscure an underlying neoplasm. C) Study interpreted with computer aided detection. Interpreted By: Quentin Perla, 09/16/2019 1:51 PM Alondra Ugarte MAMMO Final Result from Last 3 Months or Most Recently Relevant to Health Maintenance Insurance [id number] Advance Directives * Full Code (Latest Code Status on File) Date Activated Date Inactivated Comments 05/05/2024 12:22 PM 05/06/2024 3:37 PM * Full Code Date Activated Date Inactivated Comments 11/17/2021 9:12 AM 11/17/2021 11:45 AM Care Teams Nuclear Powerplant Mechanic Relationship Specialty Start Date End Date Nhi Roman MD [address] [facility] [address] [facility] [address] [place] [address] PCP - General FAMILY PRACTICE 06/13/23
--- OUTSIDE RECORDS SUMMARY | 2025-02-22 12:42 | XMS_ITS | Encounter Summary ---
Author Organization [facility] Healthcare Address [address] [place] [address] Care Team Providers Care Supervisor Quilting Name Role Phone Nhi Roman MD Primary Care Provider Manan Knott MD Unavailable [phone] Reason for Visit * Reason Onset Date Comments ready to scheduled 06/30/2022 Encounter Details Date Type Department Care Team (Late st Contact Info) Description 06/30/[address] [facility] Specialty Services [address] [place] [phone] Miscellaneous, Not In File ready to scheduled Social History Tobacco Use Types Packs/Day Years Used Date Smoking Tobacco: Never AUDIT-C Answer Date Recorded Q1: How often do you have a drink containing alc ohol? Monthly or less 01/03/2022 Average Number of Drinks Not on file 022 Frequency of Binge Drinking Not on file 12/21 Comments No Sex and Gender Information Value Date Recorded Sex Assigned at Not on file Legal Sex Female 11:15 AM EDI PROGRAMMER Gender Identity Not on file Sexual Orientation Not on file documented as of this encounter Plan of Treatment Not on file documented as of this encounter Visit Diagnoses Not on filedocumented in this encounter Care Teams Supervisor Quilting Relationship Specialty Start Date End Date Nhi Roman MD [address] [address] PCP - General Family Medicine 12/14/21 Manan Knott MD [phone] [place] [address] Surgeon Colon and Rectal Surgery 12/14/21 documented as of this encounter
--- OUTSIDE RECORDS SUMMARY | 2025-02-22 12:42 | XMS_ITS | Referral Summary ---
Author Organization [facility] Address [address] [place] [address] Care Team Providers Care Brewmaster Name Role Phone Nhi Roman MD Primary Care Provider Manan Knott MD Unavailable [phone] Allergies Active Allergy Reactions Criticality Noted [...] (11/02/2022): Added automatically from request for surgery [id number] Encounter for screening colonoscopy 12/16/2021 Overview (12/16/2021): Added automatically from request for surgery [id number] Diverticulitis 12/16/2021 Overview (12/16/2021): Added automatically from request for surgery [id number] Pain of foot 09/28/2015 Ankle pain 09/28/2015 Immunizations Immunization Administration Dates Next Due Influenza, Quadrivalent, Spl it, Preservative Free, Intramuscular 11/24/2022(Deferred: Patient Refused) Social History Tobacco Use Types Packs/Day Years [...] on file Legal Sex Female 11:15 AM MEDICAL ART THERAPIST Gender Identity Not on file Sexual Orientation Not on file Last Filed Vital Signs Vital Sign Reading Time Taken Comments Blood Pressure 116/74 12/20/2022 10:38 AM MEDICAL ART THERAPIST Pulse 71 12/20/2022 10:38 AM MEDICAL ART THERAPIST Temperature 36.6 C (97.9 F) 11/24/2022 12:05 PM MEDICAL ART THERAPIST Respiratory Rate 20 06/06/2023 12:49 PM CDT Oxygen Saturation 100% 11/24/2022 12:05 PM MEDICAL ART THERAPIST Inhaled Oxygen Concentration - - Weight 74.8 kg (165 lb) 06/06/2023 12:49 PM CDT Height 160 cm (5' 3 ) 06/06/2023 12:49 PM CDT Body Mass Index 29.23 06/06/2023 12:49 PM CDT Plan of Treatment Not on file Procedures Procedure Name Priority Date/Time Associated Diagnosis Comments COLONOSCOPY 01/03/2022 1:37 PM CDT from Last 3 Months or Most Recently Relevant to Health Maintenance Results * COLONOSCOPY (01/03/2022 1:37 PM CDT) Anatomical Region Laterality Modality Other Narrative Procedure Note Manan Knott MD - 01/03/2022 1:37 PM CDT [facility] Patient Name: Viviane Hand Procedure Date: 01/03/2022 1:37 PM Date of : 1975 Admit Type: Outpatient Age: 46 Gender: Female Attending MD: Manan Knott M.D. Room: [facility] ENDOSCOPY ROOM 02 Note Status: Finalized [...] The scope was passed under direct vision.The [id number] was introduced through the anusand advanced to [...] On: 01/03/2022 1:37 PM Recognized by the [place] [employer] for promoting quality in endoscopy Manan Knott MD ENDOSCOPY PROCEDURES Final Res ult from Last 3 Months or Most Recently Relevant to Health Maintenance [facility] [place] [facility] ACCESS CHOICE BLUE ACC CHOICE OOS ANTHEM ACCESS CHOICE Advance Directives For more information, please contact: [phone] * Full Code (Latest Code Status on File) Date Activated Date Inactivated Comments 11/21/2022 10:50 AM 11/24/2022 6:50 PM * Full Code Date Activated Date Inactivated Comments 01/03/2022 1:00 PM 01/03/2022 7:04 PM Care Teams Brewmaster Relationship Specialty Start Date End Date Nhi Roman MD [address] [address] PCP - General Family Medicine 12/14/21 Manan Knott MD [phone] [place] [address] Surgeon Colon and Rectal Surgery 12/14/21
--- OUTSIDE RECORDS SUMMARY | 2025-02-22 12:42 | XMS_ITS | Clinical Summary ---
Author Organization [facility] Address [address] [place] [address] Care Team Providers Care Lifter/Driver Name Role Phone Nhi Roman MD Primary Care Provider + Source Comments [facility],non-owned Affiliates and Associated Physician Practices is amultiple site organization consisting of ambulatory clinics and hospital sitesin [place], [place], [place] and [place]. This disclosure is being madepursuant to the Care Everywhere program and may not contain all information available regarding this patient. Last updated 18.[facility] Allergies Active Allergy Reactions Criticality Noted Date Comments Contrast-Iodinated Agents For Ct/Other Rash Medium 12/17/2021 Patient reports rash appearing in groin, abdomen and underarm areas approx. 24 hrs after scan Sulfa Drugs Urticaria Medium 12/30/2013 Medications * Be aware that medications may not be up to date on this document. Alwaysverify current medications with the patient. traZODone (Desyrel) 50 MG tablet Take 1 (one) tablet by mouth nightly as needed For insomnia. 02/20/2023 Active metoprolol tartrate IR (Lopressor) 25 MG tablet Take 1 (one) tablet by mouth 2 times daily 08/22/2022 Active hydroCHLOROthia zide (Hydrodiuril) 12.5 MG Take 1 (one) tablet by mouth once daily 02/21/2023 Active busPIRone (Buspar) 5 MG tablet Take 1 (one) tablet by mouth 2 times daily 02/21/2023 Active omeprazole (PriLOSEC) 20 MG capsule Take 1 (one) capsule by mouth once daily 12/05/2022 Active vitamin D3 (Cholecalcifero l) 25 MCG (1000 UNITS) tablet Take 1 (one) tablet by mouth every morning Active Cyanocobalamin 1000 MCG Take 1 (one) tablet by mouth every morning Active Ferrous Grlgloutu-A-Qst ic Acid (IRON-C PO) Take 65 mg by mouth once daily Active Active Problems Problem Noted Date Diagnosed Date Liver lesion 03/03/2023 Social History Tobacco Use Types Packs/Day Years Used Date Smoking Tobacco: Never Smokeless Tobacco: Never Tobacco Cessation:Counseling Given: Not Answered Alcohol Use Standard Drinks/Week Comments Yes 0 (1 standard drink = 0.6 oz pur e alcohol) a couple times a month Comments Unknown Sex and Gender Information Value Date Recorded Sex Assigned at Not on file 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 Gender Identity Not on file Sexual Orientation Not on file Last Filed Vital Signs Vital Sign Reading Time Taken Comments Blood Pressure 127/86 03/02/2023 3:10 PM CDT Pulse 77 03/02/2023 3:10 PM CDT Temperature 36.8 C (98.2 F) 03/02/2023 3:10 PM CDT Respiratory Rate 18 03/02/2023 3:10 PM CDT Oxygen Saturation 100% 03/02/2023 3:10 PM CDT Inhaled Oxygen Concentration - - Weight 74.4 kg (164 lb) 03/02/2023 3:10 PM CDT Height 160 cm (5' 3 ) 03/02/2023 3:10 PM CDT Body Mass Index 29.05 03/02/2023 3:10 PM CDT Plan of Treatment Health Maintenance Due Date Last Done Comments COLOGUARD (AGES 45-75) - COL ON CA SCREENING 1973 COLON MONITORING 1973 COLONOSCOPY - COLON CA SCREENING 1973 CT COLONOGRAPHY - COLON CA SCREENING 1973 Colorectal Cancer Screening 1973 FIT - COLON CA SCREENING 1973 FLEX SIG - COLON CA SCREENING 1973 LIPID TESTING 1973 MAMMOGRAM 1973 PAP SMEAR 1973 HIV SCREENING 1988 HEPATITIS C SCREENING 10/25/1991 DTAP/TDAP/TD VACCINES (1 - Tdap) 1992 HEPATITIS B VACCINE (1 of 3 - 19+ 3-dose series) 1992 SCREENING FOR DIABETES 03/02/2023 PNEUMOCOCCAL VACCINE 50+ (1 of 1 - PCV) 2023 ZOSTER VACCINE (1 of 2) 2023 COVID-19 VACCINE (1 - 2023-2 5 season) 2024 DEPRESSION SCREENING 10/23/2024 INFLUENZA VACCINE (Season Ended) 2025 08/02/20 21 HIB VACCINE Aged Out No longer eligi ble based on patient's age to complete this topic HPV VACCINE Aged Out No longer eligi ble based on patient's age to complete this topic MENINGOCOCCAL (Group B) VACC INE SHARED DECISION-MAKING Aged Out No longer eligibl e based on patient's age to complete this topic MENINGOCOCCAL GROUPS A/C/Y/W VACCINE Aged Out No longer eligible b ased on patient's age to complete this topic Goals Goal Patient Goal Type Associated Problems Recent Progress Patient-Stated? Author Medication Management General On track( 023 3:23 PM CDT) No Kathleen Devine RN Note: Expected end date: Ongoing Interventions: Take all medications as prescribed Let your doctor know right away about any changes in your medications Make sure to request a refill of your medication at least one week prior to your last dose Insurance [facility] Care Teams Lifter/Driver Relationship Specialty Start Date End Date Nhi Roman MD [address] [place] [address] PCP - General 06/07/22
== END 2025-02-21 11:18 | disposition home or self-care (01) ==
PROVIDERS: PCP Family Medicine; Visit Provider Physician Assistant
DX: R05.9 Cough, unspecified (principal)
CPT/HCPCS: 71046

== ENCOUNTER 2025-05-27 13:48 | Outpatient (CLI) | payer BC, SELFPAY ==
--- NOTE | ~2025-05-27 | MM_ITS ---
EXAMINATION: MM screening hoa BI w vishnu HISTORY: Screening TECHNIQUE: Craniocaudal and mediolateral oblique 3-D tomosynthesis images were obtained and synthetic 2-D images were generated. CAD analysis was submitted and interpreted. COMPARISON: Comparison to multiple prior studies sequentially, with oldest reviewed study dated 12/18. BREAST PARENCHYMAL COMPOSITION: The breasts are heterogeneously dense, which may obscure small masses . FINDINGS: There is no evidence of suspicious mass, calcification, or architectural distortion to sug gest malignancy in either breast. IMPRESSION: 1. No mammographic evidence of malignancy. 2. Recommend routine screening mammography in one year. BI-RADS Category 1: Negative Reviewed, dictated and finalized at location B.
== END 2025-05-27 13:49 | disposition home or self-care (01) ==
LOC: MICIMG 13:52
PROVIDERS: PCP Family Medicine; Visit Provider Physician Assistant
DX: Z12.31 Encounter for screening mammogram for malignant neoplasm of breast (principal)
CPT/HCPCS: 77063; 77067

== ENCOUNTER 2025-09-25 18:34 | Emergency (ER) | payer BC, SELFPAY ==
[2025-09-25 18:47] VITALS: BP 144/86; PULSE 82; RESP 16; TEMP 36.4; O2SAT 99
--- NOTE | 2025-09-25 18:59 | ED_ITS ---
HPI - Abdominal Pain General Chief Complaint: Abdominal Pain Stated Complaint: ABD PAIN Time Seen by Provider: 09/25/25 18:50 Source: patient Mode of arrival: ambulatory Limitations: no limitations History of Present Illness HPI narrative: Viviane is a 49-year-old female patient presenting to the clinic today with complaints of right upper quadrant and mid abdominal pain that started today. She reports she has had diarrhea since Monday but no diarrhea today. No blood in her stool. No nausea or vomiting. Denies any fevers, chills, body aches. Rates pain a dull/sharp pain at its worst it is a 7/10. History colorectal vaginal fistula repair 2 years ago, hysterectomy, and liver mass. Related Data Home Medications ?Medication ?Instructions ?Recorded ?Confirmed ?Last Taken ?Type cholecalciferol (vitamin D3) 25 25 mcg PO DAILY 09/25/25 05/30/22 History mcg (1,000 unit) capsule ferrous fumarate-ascorbic 1 tablet PO DAILY 08/27/21 1 11/26/24 05/30/22 History acid-ascorbate sod 65 mg iron-125 mg tablet vitamin B12 500 mcg-folic acid 400 1 tablet PO DAILY 1 10/27/20 09/25/25 05/30/22 History mcg tablet Allergies Allergy/AdvReac Type Severity Reaction Status Date / Time ciprofloxacin Allergy Intermediate Rash Verified 09/25/25 18:46 Iodinated Contrast Media Allergy Intermediate hives Verified 09/25/25 18:46 Sulfa (Sulfonamide Allergy Mild Hives / Verified 09/25/25 18:46 Antibiotics) Red Face Review of Systems Review of Systems: Pertinent positives per HPI. Patient denies any fever, chills, rash, headache, visual changes, dizziness, cough, shortness of breath, chest pain, palpitations, nausea, vomiting, constipation, or any urinary issues. [facility] Past Medical History Medical History History of hypertension Liver mass Abdominal pain Chest pain Elevated BP without diagnosis of hypertension Encounter for general adult medical examination without abnormal findings Heartburn Surgical History Surgical History History of hysteroscopy (06/02/22) Hscope D&C/ Mary Ablation ; Benign Tubal ligation status Family History Family History Father Hypertension Mother Hypertension Thyroid disorder Social History Social History Social History: Caffeine- daily Boyfriend Smoking status: Never smoker Second hand tobacco smoke exposure: No Alcohol intake: current Alcohol use details: Occasionally Substance use: never Substance use type: does not use Lack of Transportation: No Lack of Food: Never True Current Housing: I Have Housing Concerned About Future Housing: No Difficulty Paying Gas/Electric Bills: No Difficulty Paying for Meds: No Currently Unemployed: No Education: Bachelor's Degree Difficulty w/ Childcare or Family Care: No Living arrangements: with family Additional living arrangements comments: Pt and her boyfriend live together. Occupation/Education: occupation Additional occupation/education comments: RN Gender identity (if verbalized by the patient): Female Sexual Orientation (if Verbalized by the Patient): Straight or Heterosexual Spiritual care concerns: No Comments At the time of my signature, I reviewed and agree with the nursing past medical, surgical, social, and family history. There is no relevant family history pertinent to the patient complaint. Exam Narrative: General: Well-developed, obese, in no apparent distress Head: Normocephalic, atraumatic. Cardio: Regular rate and rhythm, s1 and s2 normal, no murmur appreciated. Resp: Clear to auscultation bilaterally, no rhonchi, rales, wheezing or rubs. Abdomen: Soft, pliable, bowel sounds present in all quadrants, right upper quadrant and mid abdominal tender to palpation, no organomegly, no CVAT tenderness. Course Course Level of Care: Express Care Visit Vital Signs Vital signs: Vital Signs Temperature 36.4 C L 09/25/25 18:47 Pulse Rate 82 09/25/25 18:47 Respiratory Rate 16 09/25/25 18:47 Blood Pressure 144/86 H 09/25/25 18:47 Pulse Oximetry 99 09/25/25 18:47 Temperature 36.4 C L 09/25/25 18:47 Pulse Rate 82 09/25/25 18:47 Respiratory Rate 16 09/25/25 18:47 Blood Pressure 144/86 H 09/25/25 18:47 Pulse Oximetry 99 09/25/25 18:47 Transfer Transfered to: [facility] Transportation: Other (Private car) Transfer rationale: RUQ/Mid abdomen pain Accepting physician: Jeannette MUÑOZ Transfer comments: Private car. MDM MDM Narrative Medical decision making narrative: At the time of visit patient is resting comfortably on the exam table. Patient appears to be nontoxic. Complaints of right upper quadrant and mid abdominal pain that started today. She reports she has had diarrhea since Monday but no diarrhea today. No blood in her stool. No nausea or vomiting. Denies any fevers, chills, body aches. Rates pain a dull/sharp pain at its worst it is a 7/10. History colorectal vaginal fistula repair 2 years ago, hysterectomy, and liver mass. On exam patient has soft, pliable, nondistended abdomen, tenderness to palpation of the right upper quadrant and mid abdomen, bowel sounds present all 4 quadrants, no CVAT tenderness, no organomegaly. Plan: Recommend transfer to the ER for further evaluation. Patient agrees and would like to go to [facility]. Contacted Jeannette MUÑOZ at [facility] and she accepts patient for transfer. Patient to drive- private car Differential Diagnosis Differential Diagnosis: Differential diagnostic considerations for acute abdominal pain include surgical abdominal etiology, ischemic bowel, inflammatory bowel disease, gastritis, PUD, gastroenteritis, cardiac etiology, appendicitis, diverticulitis, bowel obstruction, kidney stone, pyelonephritis, abdominal aortic aneurysm, pancreatitis, constipation, endometriosis. Discharge Plan Discharge Clinical Impression: Abdominal pain, RUQ Patient Disposition: Acute Care Hospital Condition: Stable Patient Language: Cameroonian Prescriptions: No Action iron fum-vit C-ascorbate sod 65 mg iron- 125 mg tablet 1 tablet PO DAILY cholecalciferol (vitamin D3) 25 mcg (1,000 unit) capsule 25 mcg PO DAILY vitamin G58-sjuah acid 500-400 mcg tablet 1 tablet PO DAILY Rx Instructions: administer with a meal metoprolol tartrate 25 mg tablet See Rx Instructions .ROUTE .COMPLEX Qty: 180 1RF Dose Instruction: TAKE 1 TABLET BY MOUTH TWICE A DAY Rx Instructions: TAKE 1 TABLET BY MOUTH TWICE A DAY hydrochlorothiazide 12.5 mg capsule See Rx Instructions .ROUTE .COMPLEX Qty: 90 2RF Dose Instruction: TAKE 1 CAPSULE BY MOUTH EVERY DAY Rx Instructions: TAKE 1 CAPSULE BY MOUTH EVERY DAY escitalopram oxalate [Lexapro] 5 mg tablet 5 mg PO DAILY Qty: 90 1RF omeprazole 20 mg capsule,delayed release(DR/EC) See Rx Instructions .ROUTE .COMPLEX Qty: 90 1RF Dose Instruction: TAKE 1 CAPSULE BY MOUTH EVERY DAY Rx Instructions: TAKE 1 CAPSULE BY MOUTH EVERY DAY Follow-up/Referrals: Nhi Roman MD [Primary Care Provider, [facility]] Time of Disposition: 19:10 Quality NIHSS Nursing Documentation ED NIHSS nursing documentation: reviewed/agree
== END 2025-09-25 19:00 | disposition short-term general hospital (02) ==
PROVIDERS: Emergency Provider Nurse Practitioner Family; PCP Family Medicine
DX: R10.11 Right upper quadrant pain (principal); I10 Essential (primary) hypertension; R12 Heartburn
CPT/HCPCS: 99212; G0463